=== PATIENT | female | born 1935 | race Caucasian/White ===

== ENCOUNTER 2021-11-03 09:26 | Inpatient (IN) | payer OTHER ==
[2021-11-03] MEDS ORDERED: ALBUTEROL SO4 2.5/IPRATROPIUM 0.5 INH SOL 3 ML VIAL.NEB. NEB ONE ×3 (10:03→23:00)
[2021-11-03] MEDS ORDERED: methylPREDNISolone NA SUCC 125 MG/2 ML VIAL ONE (10:03)
[2021-11-03] MEDS ORDERED: DEXAMETHASONE SOD PHOSPHATE 10 MG/1 ML VIAL ONE (10:05)
[2021-11-03 10:09] VITALS: BMI 25.6
[2021-11-03] MEDS ORDERED: DEXAMETHASONE SOD PHOSPHATE 10 MG/1 ML VIAL IVPUSH ONE (10:09)
[2021-11-03 11:02] LABS: INR 1.2 (0.83-1.09); PROTHROMBIN TIME (PATIENT) 13.8 SEC (9.7-13.0)
[2021-11-03 11:04] LABS: ACTIVATED PTT 29.6 SECONDS (25.2-36.5); BASO % 0.4 % (0-2.0); HEMATOCRIT 38.3 % (32.4-45.2); HEMOGLOBIN 13.1 GM/dL (10.7-15.3); LYMPH % 5.3 % (8-40); MCH 30.2 pg (25.7-33.7); MCHC 34.1 g/dl (32.0-36.0); MEAN CELL VOLUME 88.6 fl (80-96); MEAN PLT VOLUME 8.3 fl (7.5-11.1); MONO % 8.5 % (3.8-10.2); NEUT % 85.8 % (42.8-82.8); PLATELET COUNT 178 10^3/uL (134-434); RBC 4.32 M/mm3 (3.60-5.2); RDW 14.2 % (11.6-15.6)
[2021-11-03] MEDS ORDERED: AZITHROMYCIN IVPB 500 MG in DEXTROSE 5%-WATER - 250 ML IVPB ONE (11:10)
[2021-11-03] MEDS ORDERED: AZITHROMYCIN IVPB 500 MG/250 ML BAG IVPB ONE (11:21)
[2021-11-03 11:39] LABS: ALBUMIN 3.7 g/dl (3.4-5.0); BLOOD UREA NITROGEN 19.4 mg/dL (7-18); CALCIUM 8.9 mg/dL (8.5-10.1)
[2021-11-03 11:42] LABS: CREATININE 0.9 mg/dL (0.55-1.3)
[2021-11-03 11:44] LABS: BILIRUBIN,TOTAL 0.5 mg/dL (0.2-1); TOT PROT 7.3 g/dl (6.4-8.2)
[2021-11-03] MEDS ORDERED: ASPIRIN 81 MG CHEWABLE TABLETS PO ONE (11:45)
[2021-11-03] MEDS ORDERED: ASPIRIN 81 MG CHEWABLE TABLETS ONE (11:47)
[2021-11-03] MEDS ORDERED: CEFTRIAXONE 1,000 MG in DEXTROSE 5%-WATER - 50 ML IVPB ONE (11:47)
[2021-11-03] MEDS ORDERED: CEFTRIAXONE 1 GM/50 ML BAG ONE (13:04)
[2021-11-03] MEDS ORDERED: CLOPIDOGREL BISULFATE 75 MG TABLET (FP) PO ONE (13:43)
[2021-11-03] MEDS ORDERED: CLOPIDOGREL BISULFATE 75 MG TABLET (FP) ONE (13:48)
[2021-11-03] MEDS: ALBUTEROL SO4 2.5/IPRATROPIUM 0.5 INH SOL 3 ML VIAL.NEB. NEB SCH ×2 (13:52→20:06)
[2021-11-03] MEDS ORDERED: HEPARIN NA (PORCINE) 5,000 UNITS/ML 1ML VIAL IVPUSH ONE (14:35)
[2021-11-03] MEDS ORDERED: HEPARIN NA (PORCINE) 5,000 UNITS/ML 1ML VIAL IVPUSH PRN ×2 (14:35)
[2021-11-03 14:39] LABS: VENOUS BASE EXCESS -4.6 mmol/L (-2-2); VENOUS O2 SATURATION 82.8 % (70-80); VENOUS PCO2 42.3 mmHg (38-52); VENOUS PH 7.319 (7.310-7.410)
[2021-11-03] MEDS ORDERED: HEPARIN NA (PORCINE) 5,000 UNITS/ML 1ML VIAL ONE (14:56)
[2021-11-03] MEDS: HEPARIN - 25,000 UNIT in SODIUM CHLORIDE 495 ML IV SCH (16:05)
[2021-11-03] MEDS ORDERED: FUROSEMIDE 40 MG/4 ML INJECTABLE VIAL IVPUSH ONE (17:00)
[2021-11-03] MEDS ORDERED: ATORVASTATIN CA 40 MG TABLET (FP) ONE (23:00)
[2021-11-03] MEDS: ATORVASTATIN CA 40 MG TABLET (FP) PO SCH (23:06)
[2021-11-04 06:57] LABS: BASO % 0.1 % (0-2.0); HEMATOCRIT 34.4 % (32.4-45.2); HEMOGLOBIN 11.8 GM/dL (10.7-15.3); MCHC 34.3 g/dl (32.0-36.0); MEAN CELL VOLUME 87.5 fl (80-96); MEAN PLT VOLUME 8.4 fl (7.5-11.1); MONO % 6.8 % (3.8-10.2); NEUT % 88.1 % (42.8-82.8); PLATELET COUNT 186 10^3/uL (134-434); RBC 3.93 M/mm3 (3.60-5.2); RDW 14.1 % (11.6-15.6); WHITE BLOOD COUNT 15.3 K/mm3 (4.0-10.0)
[2021-11-04 07:17] LABS: MAGNESIUM 1.9 mg/dL (1.8-2.4)
[2021-11-04 07:21] LABS: PHOSPHOROUS 3.3 mg/dL (2.5-4.9)
[2021-11-04] MEDS: ALBUTEROL SO4 2.5/IPRATROPIUM 0.5 INH SOL 3 ML VIAL.NEB. NEB SCH ×3 (08:08→19:50)
[2021-11-04 08:10] LABS: EPI CELLS 22 /uL (0-25.1); HYALINE CASTS 5 /uL (0-3.1); URINE APPEARANCE CLOUDY; URINE BACTERIA 11 /uL (0-1359); URINE BILIRUBIN NEGATIVE (NEGATIVE); URINE COLOR YELLOW; URINE GLUCOSE (UA) 2+ (NEGATIVE); URINE KETONE NEGATIVE (NEGATIVE); URINE LEUK ESTERASE NEGATIVE (NEGATIVE); URINE NITRITE NEGATIVE (NEGATIVE); URINE PROTEIN TRACE (NEGATIVE); URINE UROBILINOGEN 0.2 mg/dL (0.2-1.0)
[2021-11-04 08:39] LABS: URINE RBC 145 /uL (0-23.9); URINE WBC 71 /uL (0-25.8)
[2021-11-04] MEDS ORDERED: predniSONE 20 MG TABLET (UD) PO SCH (10:15)
[2021-11-04] MEDS: CLOPIDOGREL BISULFATE 75 MG TABLET (FP) PO SCH (10:19)
[2021-11-04] MEDS: ASPIRIN COATED 81 MG TABLET.EC PO SCH (10:19)
[2021-11-04] MEDS: metoPROLOL SUCCINATE 25 MG TAB.SR.24H (FP) PO SCH (10:20)
[2021-11-04 12:28] LABS: N-TERMINAL BNP 5758.6 pg/ml (5-450)
[2021-11-04] MEDS: HEPARIN - 25,000 UNIT in SODIUM CHLORIDE 495 ML IV SCH (14:25)
[2021-11-04] MEDS: methylPREDNISolone NA SUCC 40 MG/1 ML VIAL IVPUSH SCH (17:04)
[2021-11-04] MEDS: INSULIN (LEVEMIR) 100 UNITS/ML UNITS SQ SCH (22:05)
[2021-11-04] MEDS: ATORVASTATIN CA 40 MG TABLET (FP) PO SCH (22:05)
[2021-11-04] MEDS: guaiFENesin/D-M SUGAR-FREE/ACLHOL-FREE 118 ML BOTTLE PO PRN (22:05)
[2021-11-05] MEDS: methylPREDNISolone NA SUCC 40 MG/1 ML VIAL IVPUSH SCH ×3 (01:12→18:02)
[2021-11-05] MEDS ORDERED: ALBUTEROL SO4 2.5/IPRATROPIUM 0.5 INH SOL 3 ML VIAL.NEB. NEB SCH ×2 (02:01→02:30)
[2021-11-05] MEDS: ALBUTEROL SO4 2.5/IPRATROPIUM 0.5 INH SOL 3 ML VIAL.NEB. NEB SCH ×4 (03:07→20:15)
[2021-11-05] MEDS: INSULIN SLIDING SCALE (NOVOLOG) 1 VIAL SQ SCH ×3 (06:17→17:03)
[2021-11-05 07:23] LABS: HEMATOCRIT 34.4 % (32.4-45.2); HEMOGLOBIN 11.7 GM/dL (10.7-15.3); MCHC 33.9 g/dl (32.0-36.0); MEAN CELL VOLUME 88.4 fl (80-96); MEAN PLT VOLUME 8.4 fl (7.5-11.1); PLATELET COUNT 222 10^3/uL (134-434); RBC 3.89 M/mm3 (3.60-5.2); RDW 14.3 % (11.6-15.6); WHITE BLOOD COUNT 15.2 K/mm3 (4.0-10.0)
[2021-11-05] MEDS: CLOPIDOGREL BISULFATE 75 MG TABLET (FP) PO SCH (09:28)
[2021-11-05] MEDS: metoPROLOL SUCCINATE 25 MG TAB.SR.24H (FP) PO SCH (09:28)
[2021-11-05] MEDS: ASPIRIN COATED 81 MG TABLET.EC PO SCH (09:28)
[2021-11-05] MEDS: INSULIN (LEVEMIR) 100 UNITS/ML UNITS SQ SCH ×2 (10:37→21:28)
[2021-11-05] MEDS: HEPARIN - 25,000 UNIT in SODIUM CHLORIDE 495 ML IV SCH (17:19)
[2021-11-05] MEDS: ATORVASTATIN CA 40 MG TABLET (FP) PO SCH (21:28)
[2021-11-06] MEDS: methylPREDNISolone NA SUCC 40 MG/1 ML VIAL IVPUSH SCH ×3 (01:35→18:48)
[2021-11-06] MEDS: ALBUTEROL SO4 2.5/IPRATROPIUM 0.5 INH SOL 3 ML VIAL.NEB. NEB SCH ×5 (04:00→20:04)
[2021-11-06] MEDS: HEPARIN - 25,000 UNIT in SODIUM CHLORIDE 495 ML IV SCH (05:20)
[2021-11-06] MEDS: INSULIN SLIDING SCALE (NOVOLOG) 1 VIAL SQ SCH ×3 (06:20→17:33)
[2021-11-06 08:28] LABS: HEMATOCRIT 35.2 % (32.4-45.2); HEMOGLOBIN 11.6 GM/dL (10.7-15.3); MCH 29.6 pg (25.7-33.7); MEAN CELL VOLUME 89.5 fl (80-96); MEAN PLT VOLUME 8.5 fl (7.5-11.1); PLATELET COUNT 239 10^3/uL (134-434); RBC 3.94 M/mm3 (3.60-5.2); RDW 14.4 % (11.6-15.6); WHITE BLOOD COUNT 15.9 K/mm3 (4.0-10.0)
[2021-11-06 08:30] LABS: HEMATOCRIT 35.2 % (32.4-45.2); HEMOGLOBIN 11.6 GM/dL (10.7-15.3); MCH 29.5 pg (25.7-33.7); MCHC 32.9 g/dl (32.0-36.0); MEAN CELL VOLUME 89.5 fl (80-96); MEAN PLT VOLUME 8.5 fl (7.5-11.1); PLATELET COUNT 237 10^3/uL (134-434); RBC 3.94 M/mm3 (3.60-5.2); RDW 14.1 % (11.6-15.6); WHITE BLOOD COUNT 15.6 K/mm3 (4.0-10.0)
[2021-11-06 08:48] LABS: CALCIUM 8.3 mg/dL (8.5-10.1)
[2021-11-06 09:04] LABS: BLOOD UREA NITROGEN 44.6 mg/dL (7-18)
[2021-11-06] MEDS: metoPROLOL SUCCINATE 25 MG TAB.SR.24H (FP) PO SCH (09:14)
[2021-11-06] MEDS: ASPIRIN COATED 81 MG TABLET.EC PO SCH (09:14)
[2021-11-06] MEDS: CLOPIDOGREL BISULFATE 75 MG TABLET (FP) PO SCH (09:15)
[2021-11-06] MEDS: INSULIN (LEVEMIR) 100 UNITS/ML UNITS SQ SCH ×2 (09:16→21:58)
[2021-11-06 09:22] LABS: ANISOCYTOSIS 2+; MACROCYTOSIS 0
[2021-11-06] MEDS: ATORVASTATIN CA 40 MG TABLET (FP) PO SCH (21:58)
[2021-11-07] MEDS: methylPREDNISolone NA SUCC 40 MG/1 ML VIAL IVPUSH SCH ×3 (01:04→17:32)
[2021-11-07] MEDS: guaiFENesin/D-M SUGAR-FREE/ACLHOL-FREE 118 ML BOTTLE PO PRN ×2 (02:18→21:22)
[2021-11-07] MEDS: INSULIN SLIDING SCALE (NOVOLOG) 1 VIAL SQ SCH ×3 (06:06→16:43)
[2021-11-07 08:12] LABS: HEMATOCRIT 33.8 % (32.4-45.2); HEMOGLOBIN 11.4 GM/dL (10.7-15.3); MCH 29.9 pg (25.7-33.7); MCHC 33.7 g/dl (32.0-36.0); MEAN CELL VOLUME 88.8 fl (80-96); MEAN PLT VOLUME 8.2 fl (7.5-11.1); PLATELET COUNT 253 10^3/uL (134-434); RBC 3.81 M/mm3 (3.60-5.2); RDW 14.7 % (11.6-15.6); WHITE BLOOD COUNT 17.4 K/mm3 (4.0-10.0)
[2021-11-07] MEDS: ALBUTEROL SO4 2.5/IPRATROPIUM 0.5 INH SOL 3 ML VIAL.NEB. NEB SCH ×4 (08:18→19:46)
[2021-11-07 08:33] LABS: CALCIUM 8.6 mg/dL (8.5-10.1)
[2021-11-07 08:34] LABS: BLOOD UREA NITROGEN 43.4 mg/dL (7-18); MAGNESIUM 2.7 mg/dL (1.8-2.4)
[2021-11-07 08:37] LABS: CREATININE 0.8 mg/dL (0.55-1.3); PHOSPHOROUS 3.5 mg/dL (2.5-4.9)
[2021-11-07 08:38] LABS: BILIRUBIN,TOTAL 0.8 mg/dL (0.2-1)
[2021-11-07 08:39] LABS: TOT PROT 6.2 g/dl (6.4-8.2)
[2021-11-07 08:40] LABS: ALBUMIN 2.9 g/dl (3.4-5.0)
[2021-11-07] MEDS: ASPIRIN COATED 81 MG TABLET.EC PO SCH (09:53)
[2021-11-07] MEDS: metoPROLOL SUCCINATE 25 MG TAB.SR.24H (FP) PO SCH (09:53)
[2021-11-07] MEDS: CLOPIDOGREL BISULFATE 75 MG TABLET (FP) PO SCH (09:54)
[2021-11-07] MEDS: INSULIN (LEVEMIR) 100 UNITS/ML UNITS SQ SCH ×2 (11:14→21:08)
[2021-11-07] MEDS: ATORVASTATIN CA 40 MG TABLET (FP) PO SCH (21:09)
[2021-11-08] MEDS: methylPREDNISolone NA SUCC 40 MG/1 ML VIAL IVPUSH SCH ×3 (02:04→18:37)
[2021-11-08] MEDS: INSULIN SLIDING SCALE (NOVOLOG) 1 VIAL SQ SCH ×3 (06:39→17:36)
[2021-11-08] MEDS: ALBUTEROL SO4 2.5/IPRATROPIUM 0.5 INH SOL 3 ML VIAL.NEB. NEB SCH ×4 (07:50→20:41)
[2021-11-08 08:08] LABS: HEMATOCRIT 34.7 % (32.4-45.2); HEMOGLOBIN 11.1 GM/dL (10.7-15.3); MCH 30.4 pg (25.7-33.7); MCHC 31.9 g/dl (32.0-36.0); MEAN PLT VOLUME 7.6 fl (7.5-11.1); PLATELET COUNT 295 10^3/uL (134-434); RBC 3.65 M/mm3 (3.60-5.2); RDW 16.2 % (11.6-15.6); WHITE BLOOD COUNT 10.9 K/mm3 (4.0-10.0)
[2021-11-08 08:30] LABS: ALBUMIN 3.1 g/dl (3.4-5.0); BLOOD UREA NITROGEN 41.4 mg/dL (7-18); CALCIUM 8.2 mg/dL (8.5-10.1); MAGNESIUM 2.7 mg/dL (1.8-2.4)
[2021-11-08 08:33] LABS: CREATININE 0.8 mg/dL (0.55-1.3)
[2021-11-08 08:34] LABS: PHOSPHOROUS 3.5 mg/dL (2.5-4.9)
[2021-11-08 08:35] LABS: BILIRUBIN,TOTAL 0.8 mg/dL (0.2-1); TOT PROT 6.5 g/dl (6.4-8.2)
[2021-11-08] MEDS: CLOPIDOGREL BISULFATE 75 MG TABLET (FP) PO SCH (10:13)
[2021-11-08] MEDS: metoPROLOL SUCCINATE 25 MG TAB.SR.24H (FP) PO SCH (10:13)
[2021-11-08] MEDS: ASPIRIN COATED 81 MG TABLET.EC PO SCH (10:13)
[2021-11-08] MEDS: INSULIN (LEVEMIR) 100 UNITS/ML UNITS SQ SCH ×2 (10:18→22:21)
[2021-11-08] MEDS: ATORVASTATIN CA 40 MG TABLET (FP) PO SCH (22:21)
[2021-11-09] MEDS: methylPREDNISolone NA SUCC 40 MG/1 ML VIAL IVPUSH SCH (02:23)
[2021-11-09] MEDS: INSULIN SLIDING SCALE (NOVOLOG) 1 VIAL SQ SCH ×3 (06:11→17:16)
[2021-11-09] MEDS: ALBUTEROL SO4 2.5/IPRATROPIUM 0.5 INH SOL 3 ML VIAL.NEB. NEB SCH ×4 (07:49→20:00)
[2021-11-09 08:27] LABS: CALCIUM 8.5 mg/dL (8.5-10.1)
[2021-11-09 08:28] LABS: BLOOD UREA NITROGEN 42.4 mg/dL (7-18)
[2021-11-09 08:31] LABS: CREATININE 0.8 mg/dL (0.55-1.3)
[2021-11-09 08:46] LABS: HEMATOCRIT 37.2 % (32.4-45.2); HEMOGLOBIN 12.4 GM/dL (10.7-15.3); MCH 29.6 pg (25.7-33.7); MCHC 33.3 g/dl (32.0-36.0); MEAN CELL VOLUME 89.1 fl (80-96); MEAN PLT VOLUME 7.9 fl (7.5-11.1); PLATELET COUNT 295 10^3/uL (134-434); RBC 4.18 M/mm3 (3.60-5.2); RDW 14.5 % (11.6-15.6); WHITE BLOOD COUNT 19.9 K/mm3 (4.0-10.0)
[2021-11-09] MEDS ORDERED: methylPREDNISolone NA SUCC 40 MG/1 ML VIAL IVPUSH SCH (10:00)
[2021-11-09] MEDS: CLOPIDOGREL BISULFATE 75 MG TABLET (FP) PO SCH (10:04)
[2021-11-09] MEDS: ASPIRIN COATED 81 MG TABLET.EC PO SCH (10:04)
[2021-11-09] MEDS: metoPROLOL SUCCINATE 25 MG TAB.SR.24H (FP) PO SCH (10:04)
[2021-11-09] MEDS: POLYETHYLENE GLYCOL (HEALTHYLAX) 3350 17 GM PACKET PO SCH (10:06)
[2021-11-09] MEDS: INSULIN (LEVEMIR) 100 UNITS/ML UNITS SQ SCH ×2 (10:51→21:04)
[2021-11-09] MEDS: ENOXAPARIN NA (PORCINE) 40 MG/0.4 ML DISP.SYRIN SQ SCH (11:05)
[2021-11-09] MEDS: ATORVASTATIN CA 40 MG TABLET (FP) PO SCH (21:04)
[2021-11-10] MEDS: INSULIN SLIDING SCALE (NOVOLOG) 1 VIAL SQ SCH ×2 (06:24→11:45)
[2021-11-10] MEDS: ALBUTEROL SO4 2.5/IPRATROPIUM 0.5 INH SOL 3 ML VIAL.NEB. NEB SCH ×3 (07:55→16:00)
[2021-11-10 08:37] LABS: HEMATOCRIT 35.8 % (32.4-45.2); HEMOGLOBIN 11.8 GM/dL (10.7-15.3); MCH 29.7 pg (25.7-33.7); MCHC 32.9 g/dl (32.0-36.0); MEAN CELL VOLUME 90.2 fl (80-96); PLATELET COUNT 268 10^3/uL (134-434); RBC 3.97 M/mm3 (3.60-5.2); RDW 14.5 % (11.6-15.6); WHITE BLOOD COUNT 18.5 K/mm3 (4.0-10.0)
[2021-11-10 08:59] LABS: BLOOD UREA NITROGEN 42.6 mg/dL (7-18); CALCIUM 8.3 mg/dL (8.5-10.1)
[2021-11-10 09:03] LABS: CREATININE 0.7 mg/dL (0.55-1.3)
[2021-11-10] MEDS ORDERED: REGADENOSON 0.4 MG/5 ML PRE-FILLED SYRINGE IVPUSH ONE ×2 (09:58→10:15)
[2021-11-10] MEDS ORDERED: predniSONE 20 MG TABLET (UD) PO SCH (10:00)
[2021-11-10] MEDS: metoPROLOL SUCCINATE 25 MG TAB.SR.24H (FP) PO SCH (10:45)
[2021-11-10] MEDS ORDERED: ACETAMINOPHEN 325 MG TABLET (FP) PO PRN (11:33)
[2021-11-10] MEDS: CLOPIDOGREL BISULFATE 75 MG TABLET (FP) PO SCH (11:41)
[2021-11-10] MEDS: ASPIRIN COATED 81 MG TABLET.EC PO SCH (11:41)
[2021-11-10] MEDS: POLYETHYLENE GLYCOL (HEALTHYLAX) 3350 17 GM PACKET PO SCH (11:42)
[2021-11-10] MEDS: INSULIN (LEVEMIR) 100 UNITS/ML UNITS SQ SCH (11:42)
[2021-11-10] MEDS: ENOXAPARIN NA (PORCINE) 40 MG/0.4 ML DISP.SYRIN SQ SCH (11:42)
[2021-11-10 14:04] VITALS: BP 132/73; PULSE 77; TEMP 98.5
== END 2021-11-10 17:43 | disposition home or self-care (01) | DRG 190 ==
LOC: JER 09:26 → JERBED 14:47 → J4S 11-04 00:30
PROVIDERS: ADMIT Internal Medicine; ATTEND Internal Medicine
DX: J43.8 Other emphysema (principal); I21.A1 Myocardial infarction type 2; J98.11 Atelectasis; I25.10 Atherosclerotic heart disease of native coronary artery without angina pectoris; I35.0 Nonrheumatic aortic (valve) stenosis; E78.00 Pure hypercholesterolemia, unspecified; E11.9 Type 2 diabetes mellitus without complications; R00.1 Bradycardia, unspecified; J20.9 Acute bronchitis, unspecified; Z95.5 Presence of coronary angioplasty implant and graft; Z95.2 Presence of prosthetic heart valve
CPT/HCPCS: 0241U-QW; 36415; 71045-TC-FY; 71250-TC; 78452-TC; 80048; 80053; 80061; 81003; 82550; 82553; 82803; 82962; 83036; 83605; 83735; 83880; 84100; 84443; 84484; 85025; 85027; 85610; 85730; 87040; 93005; 93010; 93017; 93306-TC; 94640; 94761; 97116-GP; 97162-GP; 99285-25; A9502; J1100; J1644; J2785

== ENCOUNTER 2023-05-27 04:37 | Day surgery (SDC) | payer OTHER ==
[2023-05-24 14:21] VITALS: BMI 28.8
[~2023-05-27 04:37] MED LIST: ceFAZolin SODIUM 1 GM VIAL IVPB ONE
[2023-05-27] MEDS ORDERED: ONDANSETRON 4 MG/2 ML VIAL IVPUSH PRN (15:36)
[2023-05-27] MEDS ORDERED: PROMETHAZINE HCL 25 MG/1 ML VIAL IVPB PRN (15:36)
[2023-05-27] MEDS ORDERED: LACTATED RINGERS SOLUTION 1,000 ML IV SCH ×2 (15:45→17:00)
[2023-05-27] MEDS ORDERED: MIDAZOLAM HCL 2 MG/2 ML SINGLE DOSE VIAL ONE (16:11)
[2023-05-27] MEDS ORDERED: PROPOFOL 20 ML ONE (16:11)
[2023-05-27] MEDS ORDERED: ceFAZolin SODIUM 1 GM VIAL IVPB ONE (16:21)
[2023-05-27] MEDS ORDERED: ACETAMINOPHEN INJECTION 100 ML IVPB ONE (16:34)
[2023-05-27] MEDS ORDERED: SODIUM CHLORIDE 0.9% P/F 10 ML VIAL IJ ONE (16:39)
[2023-05-27] MEDS ORDERED: KETOROLAC TROMETHAMINE 30 MG/1 ML VIAL ONE (16:39)
[2023-05-27] MEDS ORDERED: DEXAMETHASONE SOD PHOSPHATE 4 MG/1 ML VIAL ONE (16:39)
[2023-05-27] MEDS ORDERED: ceFAZolin SODIUM 1 GM VIAL ONE (16:39)
[2023-05-27] MEDS ORDERED: ONDANSETRON 4 MG/2 ML VIAL ONE (16:39)
[2023-05-27] MEDS ORDERED: ACETAMINOPHEN 325 MG TABLET (FP) PO PRN (16:53)
[2023-05-27] MEDS ORDERED: ALBUTEROL SO4 HFA INHALER IH PRN (16:59)
[2023-05-27] MEDS: DEXTROSE 5%-0.45% SALINE 1,000 ML IV SCH (19:35)
[2023-05-27 22:49] VITALS: RESP 20
[2023-05-28] MEDS: DEXTROSE 5%-0.45% SALINE 1,000 ML IV SCH (08:30)
[2023-05-28] MEDS ORDERED: metoPROLOL SUCCINATE 25 MG TAB.SR.24H (FP) PO SCH (10:00)
[2023-05-28] MEDS ORDERED: amLODIPine BESYLATE 5 MG TABLET (FP) PO SCH (10:00)
[2023-05-28 10:51] VITALS: BP 137/71; PULSE 74; TEMP 97.2
== END 2023-05-28 12:30 | disposition home or self-care (01) ==
LOC: JASU-SURG 04:37 → JASUSAT 04:37 → J5S 19:48 → JASUSAT 05-28 12:30
PROVIDERS: ATTEND Urology
PROC: 0TBB8ZZ Excision of Bladder, Via Natural or Artificial Opening Endoscopic (ICD-10-PCS; principal; 2023-05-27 15:30)
DX: C67.2 Malignant neoplasm of lateral wall of bladder (principal)
CPT/HCPCS: 86850; 86900; 86901; 88307-TC; 94760

== ENCOUNTER 2023-08-16 10:35 | Inpatient (IN) | payer OTHER ==
[2023-08-16] MEDS: ALBUTEROL SO4 2.5/IPRATROPIUM 0.5 INH SOL 3 ML VIAL.NEB. NEB SCH (12:45)
[2023-08-16 12:50] LABS: BASO % 0.3 % (0-2.0); HEMATOCRIT 36.8 % (32.4-45.2); HEMOGLOBIN 11.8 GM/dL (10.7-15.3); LYMPH % 4.1 % (8-40); MCH 26.1 pg (25.7-33.7); MEAN CELL VOLUME 81.6 fl (80-96); MEAN PLT VOLUME 8.3 fl (7.5-11.1); MONO % 6.9 % (3.8-10.2); NEUT % 88.7 % (42.8-82.8); PLATELET COUNT 187 10^3/uL (134-434); RBC 4.51 M/mm3 (3.60-5.2); RDW 20.9 % (11.6-15.6); WHITE BLOOD COUNT 11.3 K/mm3 (4.0-10.0)
[2023-08-16 12:58] LABS: INR 1.06 (0.83-1.09); PROTHROMBIN TIME (PATIENT) 12.3 SEC (9.7-13.0)
[2023-08-16 13:01] LABS: ACTIVATED PTT 29.2 SECONDS (25.2-36.5)
[2023-08-16 13:02] LABS: VENOUS BASE EXCESS 0.3 mmol/L (-2-2); VENOUS PCO2 49.2 mmHg (38-52)
[2023-08-16] MEDS ORDERED: methylPREDNISolone NA SUCC 125 MG/2 ML VIAL ONE (13:08)
[2023-08-16] MEDS ORDERED: ALBUTEROL SO4 2.5/IPRATROPIUM 0.5 INH SOL 3 ML VIAL.NEB. NEB ONE (13:08)
[2023-08-16 13:10] LABS: ANISOCYTOSIS 2+; MACROCYTOSIS 0
[2023-08-16 13:12] LABS: ALBUMIN 3.2 g/dl (3.4-5.0); BLOOD UREA NITROGEN 36.8 mg/dL (7-18); CALCIUM 8.9 mg/dL (8.5-10.1); MAGNESIUM 2.2 mg/dL (1.8-2.4)
[2023-08-16] MEDS: methylPREDNISolone NA SUCC 125 MG/2 ML VIAL IVPUSH ONE (13:14)
[2023-08-16 13:16] LABS: CREATININE 1.1 mg/dL (0.55-1.3)
[2023-08-16 13:17] LABS: BILIRUBIN,TOTAL 0.5 mg/dL (0.2-1); TOT PROT 6.8 g/dl (6.4-8.2)
[2023-08-16 13:21] LABS: N-TERMINAL BNP 725.5 pg/ml (5-450)
[2023-08-16] MEDS ORDERED: ALBUTEROL SO4 2.5/IPRATROPIUM 0.5 INH SOL 3 ML VIAL.NEB. NEB SCH (14:00)
[2023-08-16] MEDS ORDERED: MAGNESIUM SULFATE IN WATER 2 GM/50 ML IVPB IVPB ONE (14:09)
[2023-08-16] MEDS: MAGNESIUM SULF 50% (8.12 MEQ/2 ML-1 GM VIAL) IVPB ONE (14:16)
[2023-08-16] MEDS ORDERED: dilTIAZem HCL 125 MG/25 ML - 25 ML VIAL ONE (15:07)
[2023-08-16] MEDS ORDERED: dilTIAZem HCL 50 MG/10 ML - 10 ML VIAL ONE (15:09)
[2023-08-16] MEDS: dilTIAZem HCL 50 MG/10 ML - 10 ML VIAL IVPUSH ONE ×3 (15:12→15:34)
[2023-08-16] MEDS ORDERED: LEVALBUTEROL HCL 0.63 MG/3 ML VIAL.NEB. IH PRN (16:08)
[2023-08-16] MEDS: dilTIAZem HCL 30 MG TABLET PO SCH (17:08)
[2023-08-16 18:30] VITALS: BMI 29.5
[2023-08-16] MEDS: LEVALBUTEROL HCL 0.63 MG/3 ML VIAL.NEB. IH SCH (20:30)
[2023-08-16] MEDS ORDERED: dilTIAZem HCL 30 MG TABLET PO SCH (22:00)
[2023-08-16] MEDS: ENOXAPARIN NA (PORCINE) 60 MG/0.6 ML DISP.SYRIN SQ SCH (22:07)
[2023-08-16] MEDS: ATORVASTATIN CA 40 MG TABLET (FP) PO SCH (22:07)
[2023-08-16] MEDS: BUDESONIDE/FORMETEROL FUMARATE 160/4.5 mcg INHALER IH SCH (22:40)
[2023-08-17 06:37] LABS: EPI CELLS 16 /uL (0-25.1); HYALINE CASTS 0 /uL (0-3.1); URINE APPEARANCE CLOUDY; URINE BACTERIA 24 /uL (0-1359); URINE BILIRUBIN NEGATIVE (NEGATIVE); URINE COLOR YELLOW; URINE GLUCOSE (UA) 3+ (NEGATIVE); URINE KETONE NEGATIVE (NEGATIVE); URINE LEUK ESTERASE NEGATIVE (NEGATIVE); URINE NITRITE NEGATIVE (NEGATIVE); URINE PROTEIN 1+ (NEGATIVE); URINE UROBILINOGEN 0.2 mg/dL (0.2-1.0)
[2023-08-17] MEDS: ACETAMINOPHEN 325 MG TABLET (FP) PO ONE (06:42)
[2023-08-17 06:55] LABS: HEMATOCRIT 33.2 % (32.4-45.2); HEMOGLOBIN 10.9 GM/dL (10.7-15.3); MCH 26.3 pg (25.7-33.7); MCHC 32.8 g/dl (32.0-36.0); MEAN CELL VOLUME 80.1 fl (80-96); MEAN PLT VOLUME 8.9 fl (7.5-11.1); PLATELET COUNT 197 10^3/uL (134-434); RBC 4.14 M/mm3 (3.60-5.2); RDW 20.2 % (11.6-15.6); WHITE BLOOD COUNT 10.3 K/mm3 (4.0-10.0)
[2023-08-17 07:22] LABS: ALBUMIN 2.8 g/dl (3.4-5.0); BLOOD UREA NITROGEN 47.1 mg/dL (7-18); CALCIUM 8.7 mg/dL (8.5-10.1); MAGNESIUM 2.6 mg/dL (1.8-2.4)
[2023-08-17 07:26] LABS: BILIRUBIN,TOTAL 0.5 mg/dL (0.2-1); CREATININE 1.1 mg/dL (0.55-1.3)
[2023-08-17 07:28] LABS: PHOSPHOROUS 3.5 mg/dL (2.5-4.9); TOT PROT 6.3 g/dl (6.4-8.2)
[2023-08-17 07:33] LABS: URINE RBC 151.3 /uL (0-23.9)
[2023-08-17] MEDS: amLODIPine BESYLATE 5 MG TABLET (FP) PO SCH (09:11)
[2023-08-17] MEDS: methylPREDNISolone NA SUCC 40 MG/1 ML VIAL IVPUSH SCH (09:12)
[2023-08-17 09:14] LABS: ANISOCYTOSIS 1+; MACROCYTOSIS 1+
[2023-08-17] MEDS: VALSARTAN 160 MG TABLET PO SCH (09:38)
[2023-08-17] MEDS ORDERED: PATIENT'S OWN MEDICATION (NON-FORMULARY) (Valsartan/Hydrochlorothiazide [Valsartan-Hctz 16 PO SCH (10:00)
[2023-08-17] MEDS ORDERED: HYDROCHLOROTHIAZIDE 25 MG TABLET (FP) PO SCH (10:00)
[2023-08-17] MEDS: FUROSEMIDE 40 MG/4 ML INJECTABLE VIAL IVPUSH ONE (14:29)
[2023-08-17] MEDS: metoPROLOL SUCCINATE 25 MG TAB.SR.24H (FP) PO SCH (21:31)
[2023-08-17] MEDS: APIXABAN 5 MG TABLET PO SCH (21:31)
[2023-08-18 06:10] VITALS: TEMP 97.5
[2023-08-18 08:40] LABS: HEMATOCRIT 30.4 % (32.4-45.2); HEMOGLOBIN 9.9 GM/dL (10.7-15.3); MCH 26.1 pg (25.7-33.7); MCHC 32.5 g/dl (32.0-36.0); MEAN CELL VOLUME 80.4 fl (80-96); MEAN PLT VOLUME 8.6 fl (7.5-11.1); PLATELET COUNT 229 10^3/uL (134-434); RBC 3.79 M/mm3 (3.60-5.2); RDW 20.7 % (11.6-15.6); WHITE BLOOD COUNT 12.5 K/mm3 (4.0-10.0)
[2023-08-18 09:06] LABS: ALBUMIN 2.7 g/dl (3.4-5.0)
[2023-08-18 09:07] LABS: BLOOD UREA NITROGEN 64.8 mg/dL (7-18); CALCIUM 8.7 mg/dL (8.5-10.1); MAGNESIUM 2.5 mg/dL (1.8-2.4)
[2023-08-18 09:09] LABS: CREATININE 1.1 mg/dL (0.55-1.3)
[2023-08-18 09:10] LABS: BILIRUBIN,TOTAL 0.3 mg/dL (0.2-1); PHOSPHOROUS 2.8 mg/dL (2.5-4.9)
[2023-08-18 12:34] VITALS: RESP 18
[2023-08-18 14:59] VITALS: BP 110/62; PULSE 72
== END 2023-08-16 16:00 | disposition home or self-care (01) | DRG 191 ==
LOC: JER 10:35 → JERBED 14:05 → J4W 15:41
PROVIDERS: ADMIT Internal Medicine; ATTEND Internal Medicine
DX: J44.1 Chronic obstructive pulmonary disease with (acute) exacerbation (principal); I24.89 Other forms of acute ischemic heart disease; I25.10 Atherosclerotic heart disease of native coronary artery without angina pectoris; I10 Essential (primary) hypertension; E11.9 Type 2 diabetes mellitus without complications; J44.9 Chronic obstructive pulmonary disease, unspecified; Z85.51 Personal history of malignant neoplasm of bladder; I25.2 Old myocardial infarction; I48.91 Unspecified atrial fibrillation; R79.89 Other specified abnormal findings of blood chemistry; R09.02 Hypoxemia; R00.1 Bradycardia, unspecified; Z95.2 Presence of prosthetic heart valve
CPT/HCPCS: 0241U-QW; 36415; 71045-TC-FY; 80053; 81003; 82803; 83735; 83880; 84100; 84436; 84439; 84443; 84484; 85025; 85027; 85610; 85730; 87086; 93005; 93010; 93306-TC; 94761; 99285-25